=== PATIENT | male | born 1950 | race Caucasian/White ===

== ENCOUNTER 2018-10-25 00:56 | Emergency (ER) | payer MEDICARE ==
[2018-10-25] MEDS ORDERED: ASPIRIN 81 MG CHEWABLE TABLET PO ONE (00:57)
[2018-10-25 01:05] LABS: HEMATOCRIT 44.2 % (42.0-52.0); MEAN CELL VOLUME 90.9 fl (81-97); MEAN CORPUSCULAR HEMOGLOBIN 28.8 pg (27-33); MEAN CORPUSCULAR HGB CONC 31.7 g/dl (32-36); MEAN PLATELET VOLUME 10.4 fl (7.4-10.4); PLATELET COUNT 176 K/uL (130-400); RED BLOOD COUNT 4.86 M/uL (4.40-5.70); RED CELL DISTRIBUTION WIDTH 16.5 % (11.5-14.5); WHITE BLOOD COUNT W/O DIFF 6.8 K/uL (4.2-12.2)
--- NOTE | 2018-10-25 01:08 | Emergency Department Record ---
History of Present Illness - General Chief Complaint: Shortness of breath Stated Complaint: FORREST Time Seen by Provider: 10/25/18 00:57 Source: Patient Mode of Arrival: Ambulatory Limitations: No limitations - History of Present Illness Initial Comments: 68 yo male presents to ED for evaluation of chest discomfort, diaphoresis, and difficulty in breathing that began 1 hour prior to arrival. Patient reports that he started taking Prednisone this evening following IM steroid injection earlier today for contact dermatitis, denies previous heart disease but does report history of COPD. Patient denies fevers, chills, or productive cough symptoms. MD Complaint: Chest pain, Shortness of breath Onset/Timin -: Hour(s) Severity: Moderate Severity scale (1-10): 5 Quality: Aching Consistency: Constant Improves With: Nothing Worsens With: Lying flat Known History Of: COPD Context: Recent illness Associated Symptoms: Chest pain, Diaphoresis, Orthopnia Treatments Prior to Arrival: None - Related Data Allergies Allergy/AdvReac Type Severity Reaction Status Date / Time codeine Allergy Unknown Unverified 10/24/18 19:46 Allergies: Allergy Unknown Uncoded 09/15/13 10:01 Travel Screening - Travel/Exposure Within Last 30 Days Have you traveled within the last 30 days?: No - Travel Symptoms Symptom Screening: None Review of Systems Constitutional: Denies: Chills, Fever, Malaise, Night sweats Eyes: Denies: Eye discharge, Eye pain ENT: Denies: Congestion, Ear pain, Epistaxis Respiratory: Reports: Dyspnea. Denies: Cough Cardiovascular: Reports: Chest pain Endocrine: Denies: Fatigue, Heat or cold intolerance Gastrointestinal: Denies: Abdominal pain, Nausea, Vomiting Genitourinary: Denies: Incontinence, Retention Musculoskeletal: Denies: Arthralgia, Back pain Skin: Denies: Bruising, Change in color Neurological: Denies: Abnormal gait, Confusion, Headache, Seizure Psychiatric: Denies: Anxiety Hematological/Lymphatic: Denies: Anemia, Blood Clots Physical Exam - General General Appearance: Alert, Oriented x3, Cooperative Limitations: No limitations - Head Head exam: Atraumatic, Normocephalic, Normal inspection Head exam detail: negative: Abrasion, Contusion, Sparrow's sign, General tenderness, Hematoma, Laceration - Eye Eye exam: Normal appearance. negative: Conjunctival injection, Periorbital swelling, Periorbital tenderness, Scleral icterus - ENT Ear exam: negative: Auricular hematoma, Auricular trauma Nasal Exam: negative: Active bleeding, Discharge, Dried blood, Foreign body Mouth exam: negative: Drooling, Laceration, Muffled voice, Tongue elevation - Neck Neck exam: Normal inspection. negative: Meningismus, Tenderness - Respiratory Respiratory exam: Normal lung sounds bilaterally. negative: Rales, Respiratory distress, Rhonchi, Stridor - Cardiovascular Cardiovascular Exam: Normal rhythm, Normal heart sounds, Tachycardia - GI/Abdominal GI/Abdominal exam: Soft. negative: Rebound, Rigid, Tenderness - Rectal Rectal exam: Deferred - exam: Deferred - Extremities Extremities exam: Normal inspection. negative: Pedal edema, Tenderness - Back Back exam: Denies: CVA tenderness (R), CVA tenderness (L) - Neurological Neurological exam: Alert, Normal gait, Oriented X3 - Psychiatric Psychiatric exam: Normal affect, Normal mood - Skin Skin exam: Normal color. negative: Abrasion Type of lesion: negative: abrasion Course Vital Signs 10/25/18 00:57 Temperature 98.5 F Pulse Rate 113 H Respiratory 32 H Rate Blood Pressure 168/88 Pulse Ox 96 - Reevaluation(s) Reevaluation #1: 10/25/18 01:07 EKG: Sinus tachycardia 108 RBBB, borderline ST changes III ONLY Previous EKG reviewed: 05/27/12: RBBB Reevaluation #2: 10/25/18 01:27 Repeat EKG reviewed: Sinus tachycardia 110 Normal axis, RBBB Borderline elevated III, no other significant changes are noted other than RBBB No change from initial EKG> Laboratory studies reviewed and are grossly unremarkable for an acute process: CO2 21 AG 17 Likely the result of respiratory acidosis (tachypnea) Venous pH and Acetone drawn as well to exclude DKA, Troponin appears negative. Nitro ordered to be given. Patient is going for CTA chest to exclude PE/Dissection at this time. Reevaluation #3: 10/25/18 02:19 Venous pH and Acetone are negative for evidence of DKA. Preliminary review of CTA does not demonstrate thoracic dissection/PE. Patient's pain improved with SL nitro, nitro drip ordered to infuse. Reevaluation #4: 10/25/18 02:24 Case was discussed with Dr. Sahu, will accept transfer for cardiac evaluation. Reevaluation #5: 10/25/18 02:33 CTA Chest: Coronary calcifications No PE small pericaridal effusion Right tony-hilar lymphadenopathy Medical Decision Making - Lab Data Result diagrams: 10/25/18 01:00 10/25/18 01:00 Disposition Disposition: Transfer Clinical Impression: Chest pain Qualifiers: Chest pain type: unspecified Qualified Code(s): R07.9 - Chest pain, unspecified Disposition: Acute Care Hospital Transfer Transfer To: [facility] Reason For Transfer: Cardiac evaluation Accepting Physician: Luis Alberto Time Discussed w/Accepting Physician: :21 Condition: (2) Stable Forms: Patient Portal Access Time of Disposition: 02:21 Quality - Quality Measures Quality Measures: N/A - Blood Pressure Screening Does Patient Have Any of the Following: No Blood Pressure Classification: Pre-Hypertensive BP Reading Systolic Measurement: 168 Diastolic Measurement: 88 Screening for High Blood Pressure: < Pre-Hypertensive BP, F/U Documented > [G8950] Pre-Hypertensive Follow-up Interventions: Referral to alternative/primary care provider.
[2018-10-25 01:14] LABS: BLOOD UREA NITROGEN 27 mg/dL (8-23); CREATININE 1.2 mg/dL (0.7-1.2); EST GLOMERULAR FILTRATION RATE > 60 mL/min
[2018-10-25 01:15] LABS: TOTAL PROTEIN 7.5 g/dL (6.6-8.7)
[2018-10-25] MEDS ORDERED: 0.9 % SODIUM CHLORIDE 1000ML 500 ML IV SCH (01:15)
[2018-10-25 01:17] LABS: GLUCOSE,RANDOM 449 mg/dL (74-109)
[2018-10-25 01:19] LABS: ALT/SGPT 66 U/L (<41)
[2018-10-25 01:20] LABS: ALB/GLOB RATIO 1.6 (1.1-1.8); ALBUMIN 4.6 g/dL (4.0-5.0); ALKALINE PHOSPHATASE 118 U/L (40-129); AST/SGOT 67 U/L (10.0-50.0)
[2018-10-25] MEDS ORDERED: NITROGLYCERIN 0.4MG SL TABLET #25 BTL SL PRN (01:27)
[2018-10-25] MEDS ORDERED: NITROGLYCERIN 0.4MG SL TABLET #25 BTL SL ONE (01:27)
[2018-10-25 01:45] LABS: ACETONE,SERUM NEGATIVE (NEGATIVE)
[2018-10-25 01:55] LABS: ABSOLUTE NEUTROPHIL COUNT 5.75; PLATELET ESTIMATE NORMAL (NORMAL)
[2018-10-25 01:56] LABS: ANISOCYTOSIS 1+
[2018-10-25] MEDS ORDERED: NITROGLYCERIN/D5W 50 MG/250 ML ML IV SCH (02:15)
--- NOTE | 2018-10-27 22:24 | CT ANGIOGRAM REPORT ---
EXAM: CT ANGIOGRAM CHEST CTA w contrast HISTORY: SHORTNESS OF BREATH. TECHNIQUE: CT angiogram of the chest performed with 90 mL Omnipaque-350 intravenous contrast. Additional maximum-intensity projection images were created on an independent workstation. COMPARISON: Chest radiograph 06/08/2016. FINDINGS: No pulmonary artery filling defects are seen to suggest embolism. Thoracic aortic is calcified. No aneurysm or dissection. Small pleural effusion. Severe coronary artery calcification. No mediastinal, hilar, or axillary lymphadenopathy. A few scattered bilateral 1 to 2 mm subpleural pulmonary nodules are noted, for example in the lateral left upper lobe series 3, image #18. No significant focal pulmonary consolidation. No pleural effusion or pneumothorax. Unremarkable upper abdominal structures. Contiguous bridging osteophytes in the mid thoracic spine compatible with diffuse idiopathic skeletal hyperostosis. IMPRESSION: 1. NO EVIDENCE OF PULMONARY EMBOLISM OR OTHER ACUTE INTRATHORACIC ABNORMALITY. 2. SMALL PERICARDIAL EFFUSION. EXTENSIVE CORONARY ARTERY CALCIFICATIONS. 3. NOT MENTIONED ABOVE, THERE IS A BORDERLINE ENLARGED 1.4 CM IN SHORT AXIS RIGHT HILAR LYMPH NODE, OF UNCERTAIN SIGNIFICANCE. 4. TINY 1 TO 2 MM SUBPLEURAL NODULES BILATERALLY. IF THERE IS A PATIENT SMOKING HISTORY OR OTHER SIGNIFICANT RISK FACTOR, THEN FOLLOW-UP CT MAY BE OBTAINED IN 12 MONTHS TO ESTABLISH STABILITY. OTHERWISE, NO FOLLOW-UP RECOMMENDED. JOB NUMBER: [id number] [facility]
== END 2018-10-25 03:16 | disposition short-term general hospital (02) ==
LOC: ER 00:56
DX: R07.9 Chest pain, unspecified (principal); I10 Essential (primary) hypertension; J44.9 Chronic obstructive pulmonary disease, unspecified; I31.3 Pericardial effusion (noninflammatory); R91.1 Solitary pulmonary nodule; E11.9 Type 2 diabetes mellitus without complications; Z79.84 Long term (current) use of oral hypoglycemic drugs
CPT/HCPCS: 71275; 80053; 82009; 82800; 84484; 85027; 93005; 93010; 96361; 96365; 99285; J7030

== ENCOUNTER 2019-07-18 10:27 | Emergency (ER) | payer MEDICARE ==
[2019-07-18] MEDS ORDERED: ASPIRIN 81 MG CHEWABLE TABLET PO ONE (10:42)
[2019-07-18] MEDS ORDERED: MORPHINE SULFATE 5 MG/ML VIAL IVP ONE ×2 (10:42→10:59)
--- NOTE | 2019-07-18 10:49 | Emergency Department Record ---
History of Present Illness - General Chief Complaint: Chest Pain Stated Complaint: chest Time Seen by Provider: 07/18/19 10:37 Source: Patient, Family Mode of Arrival: Wheelchair Limitations: No limitations - History of Present Illness Initial Comments: The patient is here due to retrosternal chest aching for almost 2 hours. The patient describes it as an aching that is nonradiating but without any SOB, back pain, AP, FORREST, or sweating. 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 He also had a L femoral artery stent placed 2 days ago at [facility] and get discharged from the hospital yesterday. The patient did have a R groin Fem artery stent placed 2 weeks ago at [facility] also. He did take a baby ASA today. MD Complaint: Chest pain Onset/Timin -: Hour(s) Pain Location: Substernal Pain Radiation: None Quality: Heaviness, Tightness Consistency: Constant Improves With: Nothing Worsens With: Nothing Treatments Prior to Arrival: None - Related Data Home Medications Medication Instructions Recorded Confirmed Last Taken Acetaminophen 650 mg PO Q4H 07/18/19 07/18/19 Unknown Ascorbic Acid [Vitamin C] 25 mg PO DAILY 07/18/19 07/18/19 Unknown Aspirin 81 mg PO DAILY 07/18/19 07/18/19 Unknown Clopidogrel Bisulfate [Clopidogrel] 75 mg PO DAILY 07/18/19 07/18/19 Unknown Docusate Sodium [Colace] 100 mg PO BID 07/18/19 07/18/19 Unknown Magnesium Oxide [Magnesium] 250 mg PO DAILY 07/18/19 07/18/19 Unknown Metoprolol Succinate 25 mg PO DAILY 07/18/19 07/18/19 Unknown Multivitamin [Multi-Vitamin Daily] 1 each PO DAILY 07/18/19 07/18/19 Unknown Pantoprazole Sodium 40 mg PO DAILY 07/18/19 07/18/19 Unknown Allergies Allergy/AdvReac Type Severity Reaction Status Date / Time codeine Allergy Unknown PT UNSURE Verified 07/18/19 10:35 OF REACTION Travel/Exposure Screening - Travel/Exposure Within Last 30 Days Have you traveled within the last 30 days?: No - Additonal Travel/Exposure Details Have you been exposed to anyone with a communicable illness?: No Review of Systems Constitutional: Denies: Chills, Fever Eyes: Denies: Eye discharge ENT: Denies: Congestion Respiratory: Denies: Cough, Dyspnea Cardiovascular: Reports: Chest pain Endocrine: Denies: Fatigue Gastrointestinal: Denies: Nausea Genitourinary: Denies: Dysuria Musculoskeletal: Denies: Arthralgia Neurological: Denies: Seizure Past Medical History - SOCIAL HISTORY Smoking Status: Never smoker Alcohol Use: None Drug Use: None - RESPIRATORY Hx Respiratory Disorders: Yes Hx COPD: Yes - CARDIOVASCULAR Hx Cardio Disorders: Yes Hx Hypertension: Yes - NEURO Hx Neuro Disorders: No - GI Hx GI Disorders: Yes Hx Reflux: Yes - Hx Genitourinary Disorders: No - ENDOCRINE Hx Endocrine Disorders: Yes Hx Diabetes: Yes - MUSCULOSKELETAL Hx Musculoskeletal Disorders: No - PSYCH Hx Psych Problems: No - HEMATOLOGY/ONCOLOGY Hx Hematology/Oncology Disorders: Yes Hx Cancer: Yes Hx Chemotherapy: No Hx Radiation Therapy: No Family Medical History Any Significant Family History?: Yes Hx Cancer: Mother, Brother/Sister Hx Dementia: Mother Hx Diabetes: Mother Hx HTN: Mother Hx Stroke: Father Physical Exam - General General Appearance: Alert, Oriented x3, Cooperative, No acute distress - Head Head exam: Atraumatic, Normocephalic - Eye Eye exam: Normal appearance, PERRL - ENT Throat exam: Normal inspection. negative: Tonsillar erythema, Tonsillar exudate - Neck Neck exam: Normal inspection, Full ROM. negative: Tenderness - Respiratory Respiratory exam: Normal lung sounds bilaterally. negative: Respiratory distress - Cardiovascular Cardiovascular Exam: Regular rate, Normal rhythm, Normal heart sounds - GI/Abdominal GI/Abdominal exam: Soft, Normal bowel sounds. negative: Tenderness - Extremities Extremities exam: Pedal edema (trace bilaterally.). negative: Normal inspection, Tenderness - Neurological Neurological exam: Alert. negative: Motor sensory deficit Course Vital Signs 07/18/19 07/18/19 10:28 10:32 Temperature 98.7 F Pulse Rate 99 H Respiratory 22 Rate Pulse Ox 98 - Reevaluation(s) Reevaluation #1: The patient is feeling better at this time. He states the pain is improving. 07/18/19 11:07 Reevaluation #2: The patient continues to improve. His vital signs or normal and he is resting comfortably with improving pain. He is on a Nitro and Heparin drips. I did discuss the case with Dr. Barraza (Cardiology) and he does accept the consultation. I also did discuss the case with Dr. Pozo (Int Med) and he does accept the admission. 07/18/19 11:35 Reevaluation #3: The patient continues to improve. His chest pain has now resolved and he only has very mild upper AP. On exam there is no abdominal tenderness. 07/18/19 11:53 Medical Decision Making - Data Complexity MDM Data: Labs Ordered and/or Reviewed, X-Ray Ordered and/or Reviewed, EKG Ordered and/or Reviewed - Lab Data Result diagrams: 07/18/19 10:34 07/18/19 10:34 - EKG Data -: EKG Interpreted by De EKG: No Acute Changes, Unchanged From Previous - Radiology Data Radiology results: Report reviewed (CXR: Neg for any acute changes.) Disposition Disposition: Transfer Clinical Impression: Unstable angina Disposition: Acute Care Hospital Transfer Transfer To: [facility] Reason For Transfer: Cardiology Accepting Physician: Sánchez Time Discussed w/Accepting Physician: 11:38 Condition: (2) Stable Forms: Patient Portal Access Time of Disposition: 11:38 Quality - Quality Measures Quality Measures: N/A - Blood Pressure Screening View Details: Yes Does Patient Have Any of the Following: No Blood Pressure Classification: Pre-Hypertensive BP Reading Systolic Measurement: 127 Diastolic Measurement: 68 Screening for High Blood Pressure: < Pre-Hypertensive BP, F/U Documented > [G8950] Pre-Hypertensive Follow-up Interventions: Referral to alternative/primary care provider.
[2019-07-18 10:58] LABS: HEMATOCRIT 41.3 % (42.0-52.0); HEMOGLOBIN 12.8 gm/dl (14.0-18.0); MEAN CELL VOLUME 89.6 fl (81-97); MEAN PLATELET VOLUME 10.6 fl (7.4-10.4); PLATELET COUNT 143 K/uL (130-400); RED BLOOD COUNT 4.61 M/uL (4.40-5.70); RED CELL DISTRIBUTION WIDTH 16.8 % (11.5-14.5)
[2019-07-18] MEDS ORDERED: NITROGLYCERIN 0.4MG SL TABLET #25 BTL SL ONE ×2 (10:58→11:11)
[2019-07-18 11:03] LABS: MEAN CORPUSCULAR HEMOGLOBIN 27.7 pg (27-33)
[2019-07-18 11:07] LABS: BLOOD UREA NITROGEN 14 mg/dL (8-23); EST GLOMERULAR FILTRATION RATE > 60 mL/min
[2019-07-18 11:08] LABS: TOTAL PROTEIN 7.1 g/dL (6.6-8.7)
[2019-07-18 11:09] LABS: INR 0.9; PARTIAL THROMBOPLASTIN TIME 26.6 SECONDS (24.5-39.1); PROTHROMBIN TIME (PATIENT) 9.7 SECONDS (9.5-12.1)
[2019-07-18 11:10] LABS: GLUCOSE,RANDOM 238 mg/dL (74-109)
--- NOTE | 2019-07-18 11:10 | RADIOLOGY REPORT ---
EXAMINATION: Single View Chest EXAM DATE: 07/18/2019 11:03 AM TECHNIQUE: Single view chest INDICATION: CP COMPARISON: CT chest 10/25/2018 and radiographs 07/08/2018 and 06/08/2016 ENCOUNTER: Not applicable FINDINGS: EKG leads overlie the patient. There is linear lines overlying the image which may represent an overl constance blanket or possibly gridlines. There are median sternotomy wires and fixation plates. The patien t is rotated to the right. The heart is enlarged, stable. No airspace disease identified. No pneumothorax or large effusion.. IMPRESSION: No acute findings. Dictated by: Evan Valdez MD on 07/18/2019 11:06 AM. .
[2019-07-18 11:12] LABS: ALT/SGPT 42 U/L (<41); AST/SGOT 35 U/L (10.0-50.0)
[2019-07-18 11:13] LABS: ALB/GLOB RATIO 1.4 (1.1-1.8); ALBUMIN 4.2 g/dL (4.0-5.0); ALKALINE PHOSPHATASE 84 U/L (40-129)
[2019-07-18 11:16] LABS: PLATELET ESTIMATE NORMAL (NORMAL)
[2019-07-18] MEDS ORDERED: HEPARIN SODIUM 1000 UNIT/1 ML 10ML VIAL IVP ONE (11:16)
[2019-07-18] MEDS ORDERED: HEPARIN SODIUM/D5W 25,000 UNITS/500 ML BAG IV SCH (11:30)
[2019-07-18] MEDS ORDERED: NITROGLYCERIN/D5W 50 MG/250 ML ML IV SCH (11:30)
[2019-07-18] MEDS ORDERED: ONDANSETRON HCL IV 4 MG/2 ML VIAL IVP ONE (12:23)
== END 2019-07-18 12:39 | disposition short-term general hospital (02) ==
LOC: ER 10:27
DX: I20.9 Angina pectoris, unspecified (principal); R10.10 Upper abdominal pain, unspecified; J44.9 Chronic obstructive pulmonary disease, unspecified; E11.9 Type 2 diabetes mellitus without complications; I10 Essential (primary) hypertension
CPT/HCPCS: 71045; 80053; 83690; 84484; 85027; 85610; 85730; 93005; 93010; 96365; 96366; 96368; 96375; 99285; J2405